=== PATIENT | male | born 1970 | race Caucasian/White ===

== ENCOUNTER 2021-04-15 06:24 | Emergency (ER) | payer OTHER ==
[~2021-04-15] VITALS: Ht 170.2 cm; Wt 124.7 kg
[2021-04-15 06:30] VITALS: BP 178/95
--- NOTE | 2021-04-15 06:30 | NUR ---
to bed ambulatory
--- NOTE | 2021-04-15 06:49 | NUR ---
PATIENT LEFT WITHOUT BEING SEEN BY DR. Moreau. NO FURTHER CARE PROVIDED FOR PATIENT.
== END 2021-04-15 06:49 | disposition left against medical advice (07) ==
LOC: MED 06:24
DX: N50.811 Right testicular pain (principal); Z53.21 Procedure and treatment not carried out due to patient leaving prior to being seen by health care provider

== ENCOUNTER 2021-05-08 12:47 | Emergency (ER) | payer OTHER ==
--- NOTE | 2021-05-08 13:43 | NUR ---
no answer in lobby at this time
--- NOTE | 2021-05-08 13:53 | NUR ---
called pt again in lobby, no answer at this time
--- NOTE | 2021-05-08 13:53 | NUR ---
lwbs at this time
== END 2021-05-08 13:54 | disposition left against medical advice (07) ==
LOC: MED 12:47
DX: Z53.21 Procedure and treatment not carried out due to patient leaving prior to being seen by health care provider (principal)